=== PATIENT | male | born 1970 | race Caucasian/White ===

== ENCOUNTER → 2016-05-18 15:01 | Day surgery (SDC) | payer BC ==
--- NOTE | 2016-05-18 13:46 | HP ---
CC: Dr. Caesar Martell DATE OF ADMISSION: 05/18/2016. HISTORY OF PRESENT ILLNESS: Mr. Rojas is a 46-year-old gentleman with a three day history of per ianal pain, difficulty sitting, as well as fevers and overall discomfort and malaise, who has been d iagnosed with a perirectal abscess in our office today. The patient earlier seen by Dr. Freeman and prior to that seen by Dr. Caesar Martell. The patient started on Levofloxacin three days prior with minimal results. No spontaneous drainage. No problems with bowel movements. He denies any nausea or vomiting. PAST MEDICAL HISTORY: ADHD, GERD, hypercholesterolemia. PAST SURGICAL HISTORY: Uvula surgery for snoring as well as a knee surgery. MEDICATIONS: 1. Omeprazole 40 mg daily. 2. Focalin XR 10 mg daily. 3. Risperidone 1 mg daily. 4. Atorvastatin 40 mg daily. 5. He is currently on Levaquin 500 mg daily. 6. He is taking Motrin for pain. ALLERGIES: NIACIN. SOCIAL HISTORY: He is a nonsmoker, nondrinker. He is a enterprise software developer. He is morbidly obese. REVIEW OF SYSTEMS: Fevers and chills as described. Denies any previous similar symptoms. No short ness of breath. No chest pain. He is a snorer, but he did have snoring surgery with some results. No abdominal complaints. Fair exercise tolerance. PHYSICAL EXAMINATION GENERAL: He is alert and oriented times three. He is mild distress. VITAL SIGNS: Height 5'11", weight 290 pounds, BMI 40. Blood pressure 152/100, pulse 100, temperatu re 97.8, respirations 18. HEENT: Normocephalic, atraumatic. Sclerae anicteric. Mucus membranes are moist. LUNGS: Clear to auscultation bilaterally. EXTREMITIES: Within normal limits. RECTAL: Perianal area reveals an induration of tenderness along the left buttock extending to the a nal area. Cellulitis and fluctuance is appreciated. IMPRESSION: Perirectal abscess. RECOMMENDATIONS: Excision and drainage of perirectal abscess in the operating room. Continued anti biotics with the likely addition of more antibiotics upon discharge. We will culture him at that ti me. Will set him up for intervention later in the day in the operating room. I did outline the det ails of the procedure with Mr. Rojas and his , going over the risks, benefits and alternative s and they agree to proceed. The patient is tentatively scheduled for 5:00 p.m. later today. [id number]/[facility] #: [id number]
[~2016-05-18 15:01] MED LIST: Buffered Lidocaine 1% SYRIN* 3 ML/SYR SYRINGE INTRADERM ONE; Bupivacaine 0.5% W/EPI SDV* 30 ML VIAL ONE; Chloroprocaine 2%* 20 ML VIAL ONE; Dexamethasone TAB* 4 MG ONE; Dexamethasone TAB* 4 MG PO ONE; DiMENhydriNATE IV* 50 MG/ML VIAL IV PUSH PRN; HYDROmorphone* 1 MG/ML 1 ML SYR IV PRN; KETAMINE HCL* 50 MG/ML 10 ML VIAL ONE; Ketorolac INJ* 30 MG/ML 1 ML VIAL ONE; Midazolam* 1 MG/ML 5 ML VIAL (5 MG) ONE; Ondansetron INJ* 2 MG/ML VIAL IV PRN; Ondansetron INJ* 2 MG/ML VIAL ONE; Propofol* 10 MG/ML 20 ML BTL IV PUSH ONE; ceFAZolin 1 GM in Dextrose (*) 1 GM/50 ML BAG IVPB ONE; ceFAZolin 2 GM PREMIX(*) 2 GM/50 ML BAG IVPB ONE; fentaNYL* 50 MCG/ML 2 ML VIAL (100 MCG VIAL) IV PRN; fentaNYL* 50 MCG/ML 2 ML VIAL (100 MCG VIAL) ONE; oxyCODONE/Acetamin 5/325 MG* TAB PO PRN
--- NOTE | 2016-05-18 18:25 | SURGPN ---
Brief Operative Note - Surgery Procedures: Procedures Pre-OP Diagnoses: Perirectal abscess Post-op Diagnosis: same Procedure: Incision and drainage of perirectal abscess Surgeon: Wili Asst: none Anethesia: spinal Dr Starkey EBL: minimal IVF: crystalloid Specimen: abscess fluid for culture Drains: Weston drain placed
[2016-05-18 19:45] VITALS: BP 130/71
--- NOTE | 2016-05-21 16:20 | OP ---
DATE OF OPERATION: 05/18/16 - [facility] DATE OF : 68 SURGEON: Robbi Rasheed MD ENROBING MACHINE FEEDER: None. ANESTHESIOLOGIST: Dr. Starkey. ANESTHESIA: Spinal anesthesia. PRE-OP DIAGNOSIS: Perirectal abscess. POST-OP DIAGNOSIS: Perirectal abscess. OPERATIVE PROCEDURE: Incision and drainage of perirectal abscess. ESTIMATED BLOOD LOSS: Minimal. FLUIDS: Minimal crystalloid fluid given. SPECIMEN: Abscess fluid for culture. DRAINS: Half-inch Shelley drain placed. DESCRIPTION OF PROCEDURE: The patient was identified in the preoperative area, was brought to the operating room, spinal anesthesia induced. The patient was placed in the supine position. Legs were elevated in a lithotomy position and the perianal area was prepped with Betadine. A time-out was performed. Review of the site showed a small opening just at the right buttock approximately 2 cm from the anal canal. I debrided fibrinous exudate from this site. This was foul smelling. No pus was forthcoming. A Brenda clamp was then inserted and loculations broken up. We incised the site to make it larger. I was able to place my finger into the area and break up multiple loculations extending laterally along the buttock and also superiorly up into the ischiorectal space. There was minimal drainage forthcoming and cultures were taken. Next, the Shelley drain was then inserted into the site and sutured at the skin level with two individual 3-0 Prolene sutures. Sterile dressing was applied. The patient tolerated the procedure well, was awoken up in the OR, and transferred to the PACU in stable condition. CC: Dr. Caesar Martell; [facility]* [id number]/[facility] #: [id number] MTDD
== END | disposition home or self-care (01) ==
LOC: OR 15:01
PROVIDERS: ATTEND Surgery
DX: K61.3 Ischiorectal abscess (principal); E66.01 Morbid (severe) obesity due to excess calories; Z87.891 Personal history of nicotine dependence; K21.9 Gastro-esophageal reflux disease without esophagitis
CPT/HCPCS: 87070; 87073; 87076; 87205; 87640; 87641; A9270-GY; J0690; J1885; J2250; J2400; J2405; J2704; J3010

== ENCOUNTER 2018-07-01 09:40 | Day surgery (SDC) | payer BC ==
[~2018-07-01 09:40] MED LIST changes: +Acetaminophen TAB* 325 MG PO ONE; +Buffered Lidocaine 1% SYRIN* 1 ML/SYRINGE INTRADERM ONE; -Buffered Lidocaine 1% SYRIN* 3 ML/SYR SYRINGE INTRADERM ONE; -Bupivacaine 0.5% W/EPI SDV* 30 ML VIAL ONE; -Chloroprocaine 2%* 20 ML VIAL ONE; -Dexamethasone TAB* 4 MG ONE; -Dexamethasone TAB* 4 MG PO ONE; -DiMENhydriNATE IV* 50 MG/ML VIAL IV PUSH PRN; +Gabapentin CAP(*) 300 MG PO ONE; -HYDROmorphone* 1 MG/ML 1 ML SYR IV PRN; -KETAMINE HCL* 50 MG/ML 10 ML VIAL ONE; -Ketorolac INJ* 30 MG/ML 1 ML VIAL ONE; +Lactated Ringers 1000 ML Bag* 1,000 ML IV SCH; +Levalbuterol 0.63MG/3ML NEB* UNIT OF USE INH PRN; -Midazolam* 1 MG/ML 5 ML VIAL (5 MG) ONE; -Ondansetron INJ* 2 MG/ML VIAL IV PRN; -Ondansetron INJ* 2 MG/ML VIAL ONE; -Propofol* 10 MG/ML 20 ML BTL IV PUSH ONE; -ceFAZolin 1 GM in Dextrose (*) 1 GM/50 ML BAG IVPB ONE; -ceFAZolin 2 GM PREMIX(*) 2 GM/50 ML BAG IVPB ONE; -fentaNYL* 50 MCG/ML 2 ML VIAL (100 MCG VIAL) IV PRN; -fentaNYL* 50 MCG/ML 2 ML VIAL (100 MCG VIAL) ONE; -oxyCODONE/Acetamin 5/325 MG* TAB PO PRN
[2018-07-01] MEDS ORDERED: ceFAZolin 2 GM PREMIX in ORs 2 GM/50 ML BAG IVPB ONE (10:17)
[2018-07-01] MEDS ORDERED: Acetaminophen TAB* 325 MG ONE (10:17)
[2018-07-01] MEDS ORDERED: Gabapentin CAP(*) 300 MG ONE (10:17)
[2018-07-01] MEDS ORDERED: Levalbuterol 0.63MG/3ML NEB* UNIT OF USE INH ONE (10:17)
[2018-07-01] MEDS ORDERED: Buffered Lidocaine 1% SYRIN* 1 ML/SYRINGE INTRADERM ONE (10:18)
[2018-07-01] MEDS ORDERED: Midazolam* 1 MG/ML 2 ML VIAL (2 MG) ONE (12:35)
[2018-07-01] MEDS ORDERED: fentaNYL* 50 MCG/ML 2 ML VIAL (100 MCG VIAL) ONE (12:35)
[2018-07-01] MEDS ORDERED: Bupivacaine 0.5% W/EPI SDV* 30 ML VIAL ONE (13:19)
[2018-07-01] MEDS ORDERED: EPINEPHRINE 1 MG/ML 1 ML VIAL ONE (13:19)
[2018-07-01] MEDS ORDERED: Famotidine IV* 10 MG/ML 2 ML (20 mg) ONE (13:31)
[2018-07-01] MEDS ORDERED: ceFAZolin 1 GM in Dextrose (*) 1 GM/50 ML BAG IVPB ONE (13:31)
[2018-07-01] MEDS ORDERED: Dexamethasone IV* 4 MG/ML 1 ML (4 MG) ONE (13:54)
[2018-07-01] MEDS ORDERED: Propofol* 10 MG/ML 20 ML BTL ONE (13:54)
[2018-07-01] MEDS ORDERED: Ketorolac INJ* 30 MG/ML 1 ML VIAL ONE (13:54)
[2018-07-01] MEDS ORDERED: Lidocaine 2% PF * 5 ML VIAL ONE (13:55)
[2018-07-01] MEDS ORDERED: PROCHLORPERAZINE INJ 5 MG/ML 2 ML VIAL IV PRN (14:01)
[2018-07-01] MEDS ORDERED: fentaNYL* 50 MCG/ML 2 ML VIAL (100 MCG VIAL) IV PRN (14:01)
[2018-07-01] MEDS ORDERED: DiMENhydriNATE IV* 50 MG/ML VIAL IV PUSH PRN (14:01)
[2018-07-01] MEDS ORDERED: Acetaminophen TAB* 325 MG PO PRN (14:01)
[2018-07-01] MEDS ORDERED: HYDROcodone/ACETAMIN 5-325 MG* 1 TAB PO PRN ×2 (14:01)
[2018-07-01] MEDS ORDERED: Naloxone* 0.4 MG/ML 1 ML VIAL IV PRN (14:01)
[2018-07-01] MEDS ORDERED: diPHENhydraMINE IV* 50 MG/ML 1 ml VIAL (BENADRYL) IV PRN (14:01)
[2018-07-01] MEDS ORDERED: HYDROcodone/ACETAMIN 5-325 MG* 1 TAB ONE (15:25)
[2018-07-01 16:17] VITALS: BP 155/85
--- NOTE | 2018-07-01 22:57 | OP ---
OPERATIVE REPORT: DATE OF OPERATION: 07/01/18 DATE OF : 68 SURGEON: Rafy Rooney MD TOOL DESIGN CHECKER: SUHAIL Lee A physician assistant import manager was required for the length of the procedure for assistance with positioning, r etraction, knee manipulation, and closure. ANESTHESIOLOGIST: Dr. Buck Skinner. ANESTHESIA: General anesthesia, local anesthesia with 23 cc of Marcaine 0.5% with epinephrine. PRE-OP DIAGNOSIS: Left knee medial meniscus tear. POST-OP DIAGNOSIS: Left knee medial meniscus tear. OPERATIVE PROCEDURE: 1. Left knee arthroscopic partial medial meniscectomy. 2. Left knee arthroscopic anterior synovectomy and removal of medial plica. ANTIBIOTICS: Ancef 3 g IV. IV FLUIDS: 1200 cc crystalloid. TOURNIQUET TIME: 28 minutes at 300 mmHg, left thigh. [id number]-DV-[id number] TIME: 24 minutes. ARTHROSCOPIC FLUID UTILIZED: Not recorded. SPECIMEN: None. IMPLANTS: None. COMPLICATIONS: None. ESTIMATED BLOOD LOSS: Minimal. INDICATIONS FOR PROCEDURE: The patient is a 48-year-old man, it senior software engineer java, maryanne sánchez wit h a BMI 43, who developed pain about the left medial knee in 2017 with a discrete injury. I have see n him on and off since that time. He has been treated with a full spectrum of nonoperative managemen t as detailed in history and physical. He responded insufficiently to this. MRI did demonstrate a t ear, oblique or radial in the medial meniscus posterior horn. The patient opted for surgery. I described risks and potential complications of surgery. DESCRIPTION OF PROCEDURE: In preoperative holding, the patient signed a written consent. Operative extremity was marked in preoperative holding. The patient was taken back to the operating room and p laced supine on the operating room table. Sedated and intubated. Tourniquet placed about the left pr oximal thigh. The left distal thigh placed in a circumferential thigh cardona. Left lower extremity was prepped and draped. Surgical time-out performed. Esmarch applied and tourniquet was elevated to 300 mmHg. Anterolateral knee arthroscopy portal established using standard technique. Diagnostic arthroscopy co mmenced. No significant articular cartilage damage to the patellofemoral compartment outside of some grade 1 injury to the central part of the trochlear groove. I next moved to the medial compartment. The medial compartment had some diffuse grade 1 to 2 changes of the medial femoral condyle. Medial meniscus tear immediately visible. Anteromedial knee arthroscopy portal established under direct visualization. I brought arthroscopic shaver and debrided anterior synovitis about the knee. I evaluated more closely the medial meniscus. There was a complex-shaped tear about the body posteri or horn junction. Looked like, there was a displaced amount of meniscal tissue displaced just inferi or to the rest of the meniscus. I debrided the meniscus back to a stable rim using biters and arthro scopic shaver. I probed the meniscus. It was clearly debrided back to a stable rim. Fortunately, t here was still plenty of meniscus tissue remaining. I then moved to the lateral compartment. No articular cartilage or meniscus injury there. I then moved to the patellofemoral compartment. I debrided some more anterior synovitis in a fully e xtended position. I also debrided a prominent medial plica. I pulled all instruments and fluid from the knee. I closed the skin incisions with [id number] a nd 12 stitches using nylon 3-0 suture. It should be noted, I made a second anteromedial portal to he lp with my patellofemoral compartment soft tissue debridement. Once skin incisions were closed, I placed local anesthetic in the subcutaneous tissue about all skin incisions. I placed Xeroform, 4x4s, ABD, sterile Webril, Haseeb bandage foot to proximal thigh. The pa tient was awakened, extubated, and taken to the PACU. DISPOSITION: The patient will be discharged home when medically stable. Wound care instructions pro vided. Aspirin b.i.d. x2 weeks for DVT prophylaxis. Percocet as needed for pain control. Follow up in clinic 10 to 14 days. The patient will start physical therapy immediately and will start home [facility] prior to his first physical therapy appointment. [id number]/[facility] #: [id number]
== END 2018-07-01 16:27 | disposition home or self-care (01) ==
LOC: OR 09:40
PROVIDERS: ATTEND Orthopaedic Surgery
DX: S83.232A Complex tear of medial meniscus, current injury, left knee, initial encounter (principal); M67.52 Plica syndrome, left knee; X58.XXXA Exposure to other specified factors, initial encounter; Y92.9 Unspecified place or not applicable; Z87.891 Personal history of nicotine dependence; K21.9 Gastro-esophageal reflux disease without esophagitis; E78.00 Pure hypercholesterolemia, unspecified; Z68.42 Body mass index [BMI] 45.0-49.9, adult; F90.9 Attention-deficit hyperactivity disorder, unspecified type
CPT/HCPCS: A9270-GY; J0690; J1100; J1885; J2250; J2704; J3010